=== PATIENT | male | born 1955 | race Caucasian/White ===

== ENCOUNTER 2021-04-08 00:52 | Emergency (ER) | payer SELFPAY ==
[~2021-04-08] VITALS: Ht 180.3 cm; Wt 93.9 kg
--- NOTE | 2021-04-08 01:03 | NUR ---
PT BIBSELF C/O RT HERNANDEZ ABRASION, LEFT ELBOW ABRAISION AND LEFT THIGH PAIN S/P TRIP AND FALL OVER A SHOPPING CART @1552 TODAY. PT [id number] BREATHING EVENLY AND UNLABORED. AT BEDSIDE. PT ATTACHED TO MONITOR AND POX. PT GIVEN BLANKET AND CALL LIGHT WITHIN REACH
--- NOTE | 2021-04-08 01:07 | NUR ---
PT REFUSED TDAP VACCINE, MD AWARE
[2021-04-08] MEDS: IBUPROFEN 400 MG TABLET PO ONE (01:13)
[2021-04-08] MEDS ORDERED: IBUPROFEN 400 MG TABLET ONE (01:15)
--- NOTE | 2021-04-08 01:15 | NUR ---
Patient discharged to home in stable condition. Written and verbal after care instructions given. Patient verbalizes understanding of instruction. Pt ambulatory with a steady gait
[2021-04-08 01:19] VITALS: BP 130/85
== END 2021-04-08 01:15 | disposition home or self-care (01) ==
LOC: ER 00:57
DX: S80.811A Abrasion, right lower leg, initial encounter (principal); S50.312A Abrasion of left elbow, initial encounter; S80.212A Abrasion, left knee, initial encounter; M79.652 Pain in left thigh; W01.0XXA Fall on same level from slipping, tripping and stumbling without subsequent striking against object, initial encounter; Y93.89 Activity, other specified; Y92.89 Other specified places as the place of occurrence of the external cause; Y99.8 Other external cause status